=== PATIENT | female | born 1995 | race American Indian/Alaskan Native ===

== ENCOUNTER 2020-11-25 20:28 | Emergency (ER) | payer OTHER ==
[2020-11-25 22:02] LABS: Basophils % (Auto) 0.7 % (0.0-1.8); Eosinophils # (Auto) 0.1 K/mm3 (0.0-0.4); Eosinophils % (Auto) 1.5 % (0.0-4.3); Hemoglobin 13.3 gm/dl (10.1-14.3); Lymphocytes # (Auto) 2.2 K/mm3 (1.2-5.4); Lymphocytes % (Auto) 41.8 % (13.4-35.0); Mean Corpuscular HGB Conc 33 % (30-34); Mean Corpuscular Volume 86 fl (79-97); Monocytes # (Auto) 0.5 K/mm3 (0.0-0.8); Monocytes % (Auto) 10.3 % (0.0-7.3); Platelet Count 273 K/mm3 (140-440); Red Blood Count 4.63 M/mm3 (3.65-5.03); Red Cell Distribution Width 12.9 % (13.2-15.2)
[2020-11-25 22:23] LABS: Alanine Aminotransferase 9 units/L (7-56); Albumin 4.5 g/dL (3.9-5); Blood Urea Nitrogen 10 mg/dL (7-17); Calcium 8.9 mg/dL (8.4-10.2); Hemolysis Index 8
[2020-11-25 22:25] LABS: BUN/Creatinine Ratio 14
[2020-11-25 23:01] LABS: Bacteria,Urine 4+ /HPF (Negative); Bilirubin,Urine NEG (Negative); Blood,Urine NEG (Negative); Color,Urine Yellow (Yellow); Mucus,Urine 3+ /HPF; Urobilinogen,Urine < 2.0 mg/dL (<2.0)
[2020-11-25] MEDS ORDERED: MORPHINE 4 MG/1 ML INJ IV ONE (23:35)
[2020-11-25] MEDS ORDERED: cefTRIAXone/NS 1 GM/50 ML 1 GM/50 ML BAG IV ONE (23:35)
[2020-11-25] MEDS ORDERED: ONDANSETRON 4 MG/2 ML INJ IV ONE (23:36)
[2020-11-25] MEDS ORDERED: KETOROLAC 30 MG/1 ML INJ IV ONE (23:36)
--- NOTE | 2020-11-25 23:40 | Emergency Department Report ---
ED Female HPI - General Chief complaint: Abdominal Pain Stated complaint: SHARP ABDOMINAL PAIN RIGHT SIDE Time Seen by Provider: 11/25/20 23:30 Source: patient Mode of arrival: Ambulatory Limitations: No Limitations - History of Present Illness Initial comments: Chief complaint: :My side is hurting." HPI: This is a 25-year-old female who presents with right flank pain which began gradually this morning. Throughout the day the pain is increased in severity and intensity. Feels like menstrual cramps. Pain radiates to the right groin. She has nausea. She denies fever. She denies chills. She has pressure when she urinates. She is currently menstruating. This is her normal time of menses. MD Complaint: other (Right flank pain with urinary discomfort) -: Gradual, This morning Severity: severe Severity scale (0 -10): 8 Quality: cramping, dull Consistency: constant Improves with: none Worsens with: urination Are you Now?: No Associated Symptoms: other (Nausea) - Related Data Previous Rx's Medication Instructions Recorded Last Taken Type Cefdinir 300 mg PO BID 10 Days #20 capsule 11/26/20 Unknown Rx HYDROcodone/APAP 5-325 [[place] 1 each PO Q4HR PRN #15 tablet 11/26/20 Unknown Rx 5/325] Ibuprofen [Motrin 400 MG tab] 400 mg PO Q8H PRN #15 tablet 11/26/20 Unknown Rx Ondansetron [Zofran Odt] 4 mg PO Q8HR PRN #10 tab.rapdis 11/26/20 Unknown Rx Allergies Allergy/AdvReac Type Severity Reaction Status Date / Time No Known Allergies Allergy Unverified 11/25/20 21:45 ED Review of Systems ROS: Stated complaint: SHARP ABDOMINAL PAIN RIGHT SIDE Other details as noted in HPI Comment: All other systems reviewed and negative Constitutional: denies: chills, fever, malaise ENT: denies: throat pain Respiratory: denies: cough, shortness of breath Cardiovascular: denies: chest pain Gastrointestinal: nausea Genitourinary: other (Discomfort with urination pressure sensation) Musculoskeletal: back pain ED Past Medical Hx - Past Medical History Previous Medical History?: No - Surgical History Past Surgical History?: No - Social History Smoking Status: Never Smoker - Medications Home Medications: Home Medications Medication Instructions Recorded Confirmed Last Taken Type Cefdinir 300 mg PO BID 10 Days #20 capsule 11/26/20 Unknown Rx HYDROcodone/APAP 5-325 [[place] 1 each PO Q4HR PRN #15 tablet 11/26/20 Unknown Rx 5/325] Ibuprofen [Motrin 400 MG tab] 400 mg PO Q8H PRN #15 tablet 11/26/20 Unknown Rx Ondansetron [Zofran Odt] 4 mg PO Q8HR PRN #10 tab.rapdis 11/26/20 Unknown Rx ED Physical Exam - General Limitations: No Limitations General appearance: alert, in no apparent distress - Head Head exam: Present: atraumatic, normocephalic - Eye Eye exam: Present: normal appearance - ENT ENT exam: Present: mucous membranes moist - Neck Neck exam: Present: normal inspection, full ROM - Respiratory Respiratory exam: Present: normal lung sounds bilaterally. Absent: respiratory distress, wheezes, rales, rhonchi, stridor - Cardiovascular Cardiovascular Exam: Present: regular rate, normal rhythm, normal heart sounds. Absent: systolic murmur, diastolic murmur, rubs, gallop - GI/Abdominal GI/Abdominal exam: Present: soft, normal bowel sounds. Absent: distended, tenderness, guarding, rebound - Extremities Exam Extremities exam: Present: normal inspection - Back Exam Back exam: Present: CVA tenderness (R). Absent: CVA tenderness (L), muscle spasm, paraspinal tenderness, vertebral tenderness, rash noted - Neurological Exam Neurological exam: Present: alert, oriented X3 - Psychiatric Psychiatric exam: Present: normal affect, normal mood - Skin Skin exam: Present: warm, dry, intact, normal color. Absent: rash ED Course Vital Signs 11/25/20 11/25/20 11/25/20 21:36 23:27 23:30 Temperature 99.3 F Pulse Rate 95 H 88 Respiratory 18 18 Rate Blood Pressure 113/67 113/56 O2 Sat by Pulse 99 100 98 Oximetry ED Medical Decision Making - Lab Data Result diagrams: 11/25/20 21:47 11/25/20 21:47 Laboratory Results - last 24 hr 11/25/20 11/25/20 11/25/20 21:47 21:47 Unknown WBC 5.3 RBC 4.63 Hgb 13.3 Hct 40.0 MCV 86 MCH 29 MCHC 33 RDW 12.9 L Plt Count 273 Lymph % (Auto) 41.8 H [place] % (Auto) 10.3 H Eos % (Auto) 1.5 Baso % (Auto) 0.7 Lymph # (Auto) 2.2 [place] # (Auto) 0.5 Eos # (Auto) 0.1 Baso # (Auto) 0.0 Seg Neutrophils % 45.7 Seg Neutrophils # 2.4 Sodium 138 Potassium 3.9 Chloride 102.4 Carbon Dioxide 22 Anion Gap 18 BUN 10 Creatinine 0.7 Estimated GFR > 60 BUN/Creatinine Ratio 14 Glucose 83 Calcium 8.9 Total Bilirubin 0.40 AST 13 ALT 9 Alkaline Phosphatase 81 Total Protein 7.2 Albumin 4.5 Albumin/Globulin Ratio 1.7 Lipase 26 Urine Color Yellow Urine Turbidity Cloudy Urine pH 7.0 Ur Specific [place] 1.018 Urine Protein 30 mg/dl Urine Glucose (UA) Neg Urine Ketones 20 Urine Blood Neg Urine Nitrite Pos Urine Bilirubin Neg Urine Urobilinogen < 2.0 Ur Leukocyte Esterase Mod Urine WBC (Auto) 54.0 H Urine RBC (Auto) 6.0 U Epithel Cells (Auto) 9.0 Urine Bacteria (Auto) 4+ Urine Mucus 3+ Urine Yeast (Budding) 2+ - Medical Decision Making acute pyelonephritis: IV ceftriaxone IV analgesia IV antiemetic provided in the ED DDX: renal colic, appendicitis Prescriptions: Cefdinir, [place], ibuprofen, Zofran Critical care attestation.: If time is entered above; I have spent that time in minutes in the direct care of this critically ill patient, excluding procedure time. ED Disposition Clinical Impression: Acute pyelonephritis Disposition: DC-01 TO HOME OR SELFCARE Is pt being admited?: No Does the pt Need Aspirin: No Condition: Stable Instructions: Abdominal Pain (ED), Pyelonephritis, Adult Prescriptions: Cefdinir 300 mg PO BID 10 Days #20 capsule Ibuprofen [Motrin 400 MG tab] 400 mg PO Q8H PRN #15 tablet PRN Reason: Pain , Severe (7-10) HYDROcodone/APAP 5-325 [[place] 5/325] 1 each PO Q4HR PRN #15 tablet PRN Reason: Pain Ondansetron [Zofran Odt] 4 mg PO Q8HR PRN #10 tab.rapdis PRN Reason: Nausea Referrals: PRIMARY CARE,MD [Primary Care Provider] - 3-5 Days
[2020-11-26] MEDS ORDERED: IBUPROFEN 800 MG TAB PO ONE (01:09)
[2020-11-26] MEDS: MORPHINE 4 MG/1 ML INJ IV ONE ×2 (02:02→02:05)
[2020-11-26] MEDS ORDERED: fentaNYL 100 MCG/2 ML INJ IV ONE (02:32)
[2020-11-26] MEDS ORDERED: SODIUM CHLORIDE 0.9% 1000 ML 1,000 ML ONE (02:41)
[2020-11-26 04:41] VITALS: BP 112/67
== END 2020-11-26 04:43 | disposition home or self-care (01) ==
LOC: ED 20:28
DX: N12 Tubulo-interstitial nephritis, not specified as acute or chronic (principal); R30.0 Dysuria; Z79.899 Other long term (current) drug therapy
CPT/HCPCS: 36415; 80053; 81001; 83690; 85025; 87086; 96365; 96375; 99283; J0696; J1885; J2270; J2405; J3010; J7030